=== PATIENT | female | born 1970 | race Caucasian/White ===

== ENCOUNTER 2020-05-28 13:43 | Emergency (ER) | payer BC, MEDICARE ==
[~2020-05-28] VITALS: Ht 154.9 cm; Wt 106.0 kg
[2020-05-28 14:51] VITALS: BP 140/80
[2020-05-28] MEDS ORDERED: NAPROXEN 500 MG TABLET PO STA (15:35)
[2020-05-28] MEDS ORDERED: HYDROcodone/APAP 5/325MG 1 TAB TABLET PO ONE (15:45)
--- NOTE | 2020-05-28 15:58 | RAD ---
LEFT WRIST, 3 VIEWS Indication: Reason: fall this am, painful and swollen wrist area / Spl. Instructions: / History: Findings: There is no acute fracture or dislocation. No bony erosion is identified. The bony articulations are normal. The mineralization is normal. There is no soft tissue swelling or radiopaque foreign body. IMPRESSION: No acute fracture or dislocation. Electronically signed by: Antoine Hanley MD (05/28/2020 3:55 PM) [facility]
--- NOTE | 2020-05-28 16:09 | PHYS DOC ---
Past Medical History Past Medical History: Hypertension, Hypothyroid, Other Additional Past Medical Histor: LUPUS Past Surgical History: Cholecystectomy, Knee Replacement, Tubal ligation Smoking Status: Never Smoker Alcohol Use: None General Adult EDM: Chief Complaint: WRIST PAIN HPI: HPI: Patient is a 49 year old female who presents to the ED today complaining of 8 out of 10 right distal wrist pain that began at 4 in the morning after she fell. Denies any loss of consciousness. Denies hitting her head on the ground. States the pain is worse on range of motion at touching the wrist specifically the ulnar aspect. Denies any scaphoid pain or tenderness. Denies anything relieving the pain. Describes the pain as sharp and intermittent. Review of Systems: Review of Systems: Constitutional: Denies fever or chills. [] Musculoskeletal: Reports right wrist pain Integument: Denies rash. [] Neurologic: Denies headache, focal weakness or sensory changes. [] Psychiatric: Denies depression or anxiety. [] Heart Score: Risk Factors: Risk Factors: DM, Current or recent (<one month) smoker, HTN, HLP, family history of CAD, obesity. Risk Scores: Score 0 - 3: 2.5% MACE over next 6 weeks - Discharge Home Score 4 - 6: 20.3% MACE over next 6 weeks - Admit for Clinical Observation Score 7 - 10: 72.7% MACE over next 6 weeks - Early Invasive Strategies Current Medications: Current Medications Medications (Trade) Dose Ordered Sig/Adan Start Time Stop Time Status Last Admin Dose Admin Acetaminophen/ Hydrocodone Bitart (Lortab 5/325) 1 tab 1X ONCE 05/28/20 15:45 05/28/20 15:46 DC 05/28/20 15:47 1 TAB Naproxen (Naprosyn) 500 mg 1X STAT 05/28/20 15:35 05/28/20 15:37 DC 05/28/20 15:47 500 MG Allergies: Allergies: Allergies Coded Allergies Type Severity Reaction Last Updated Verified No Known Drug Allergies 05/28/20 No Physical Exam: PE: Constitutional: Well developed, well nourished, no acute distress, non-toxic appearance. [] Skin: Warm, dry, no erythema, no rash. [] Back: No tenderness, no CVA tenderness. [] Extremities: Right wrist with no obvious deformity, no scaphoid tenderness, tenderness on the distal ulnar aspect of the wrist. Full range of motion to the right wrist and fingers. +2 right radial pulse. Cap refill less than 2 seconds to right fingers. Adequate radial, medial, ulnar sensation to the right wrist. Neurologic: Alert and oriented X 3, normal motor function, normal sensory function, no focal deficits noted. [] Psychologic: Affect normal, judgement normal, mood normal. [] Current Patient Data: Vital Signs: Vital Signs Date Time Temp Pulse Resp B/P (MAP) Pulse Ox O2 Delivery O2 Flow Rate FiO2 05/28/20 15:47 16 98 Room Air 05/28/20 14:51 98.7 83 140/80 (100) 98.7 EKG: EKG: [] Radiology/Procedures: Radiology/Procedures: []REASON: fall this am, painful and swollen wrist area PROCEDURE: WRIST 3V RIGHT LEFT WRIST, 3 VIEWS Indication: Reason: fall this am, painful and swollen wrist area / Spl. Instructions: / History: Findings: There is no acute fracture or dislocation. No bony erosion is identified. The bony articulations are normal. The mineralization is normal. There is no soft tissue swelling or radiopaque foreign body. IMPRESSION: No acute fracture or dislocation. Electronically signed by: Antoine Hanley MD (05/28/2020 3:55 PM) [facility] DICTATED and SIGNED BY: ANTOINE HANLEY MD DATE: 05/28/20 [id number] 0 Course & Med Decision Making: Course & Med Decision Making Pertinent Labs and Imaging studies reviewed. (See chart for details) This is a 49-year-old female patient presenting to the ED today with right wrist pain status post falling at 4 AM this morning. Right wrist x-rays interpreted by radiologist are negative for any acute findings. Provided Velcro splint to the right wrist by the ED RN. Neurovascular exam is intact. Ice elevation encouraged. Follow-up with orthopedic doctor in 1 week if pain persist Zohreh Disclaimer: Zohreh Disclaimer: This electronic medical record was generated, in whole or in part, using a voice recognition dictation system. Departure Departure Impression: Primary Impression: Fall from standing Qualified Codes: W19.XXXA - Unspecified fall, initial encounter Additional Impression: Right wrist pain Disposition: 01 DC HOME SELF CARE/HOMELESS Condition: STABLE Referrals: MATTIE MONTEIRO MD (PCP) KERI PEDERSEN MD follow up in one week Patient Instructions: Wrist Sprain with [facility] Additional Instructions: You were seen for right wrist pain, your right wrist x-rays are negative for any acute findings. Try to ice and elevate the extremity. Wear the Velcro provided as tolerated and needed. Follow-up with orthopedic doctor in 1 to 2 weeks Scripts Diclofenac Potassium (DICLOFENAC POTASSIUM) 50 Mg Tablet 1 TAB PO BID, #14 TAB 1 Refill Prov: ALPHONSO CHAVEZ APRN 05/28/20 ALPHONSO CHAVEZ APRN May 28, 2020 16:08
[2020-05-28] MEDS ORDERED: DICL50TA2 PO (16:23)
== END 2020-05-28 16:40 | disposition home or self-care (01) ==
LOC: ER 13:43
DX: G89.11 Acute pain due to trauma (principal); M25.531 Pain in right wrist; R20.2 Paresthesia of skin; I10 Essential (primary) hypertension; E03.9 Hypothyroidism, unspecified; Z90.49 Acquired absence of other specified parts of digestive tract; Z98.890 Other specified postprocedural states; Z98.51 Tubal ligation status; W18.39XA Other fall on same level, initial encounter; Y93.89 Activity, other specified; Y92.89 Other specified places as the place of occurrence of the external cause; Y99.8 Other external cause status
CPT/HCPCS: 29125; 73110; 99283

== ENCOUNTER → 2021-01-30 | Outpatient (CLI) | payer BC ==
[~2021-01-30] MED LIST: ALPR0.25 PO; AMLO1CAP54 PO; CELE200C PO; CYAN-25 PO; DICL50TA2 PO; DULO20CA PO; HYDR200T71 PO; IOHEXOL 180 MG/ML 10 ML VIAL. ONE; LEVO175T5 PO; PROP10TA PO; SIMV10TA15 PO; TIZA4TAB2 PO; methylPREDNISolone ACETATE 40 MG/ML VIAL. ONE; methylPREDNISolone ACETATE 80 MG/ML VIAL. ONE
--- NOTE | 2021-01-30 12:32 | PDOC1 ---
INITIAL PAIN CONSULT DATE OF SERVICE: DOS: DATE: 01/30/21 TIME: 12:20 CHIEF COMPLAINT: Chief Complaint: Neck and bilateral upper extremity pain right greater than left HISTORY OF PRESENT ILLNESS: 50-year-old female presents with history of pain neck and shoulders bilateral upper extremities right greater than left for 10 years worse over the past year or 2 patient reports that she did have a anterior cervical discectomy and fusion in the past which helped for about a year following the surgery but the pain returned now over the past 2 to 3 years beginning to get worse with pain in the patient's neck and shoulders as well as the right arm with radiation to the hand and fingers more on the right than left and present bilaterally. Patient describes as constant throbbing tingling with numbness radiating pain aching cramping and burning also complains of pain low back and right lower extremity mostly the posterior gluteus posterior thigh and posterior calf but is secondary to the pain in the upper extremities. Patient has had physical therapy in the past chiropractic treatment is still doing exercises has had epidural injections in [facility] as well as trigger point injections which all were helpful but only temporarily. Patient is taking tizanidine at night which does help her sleep. Patient not had any recent diagnostic studies x-rays or MRIs. Patient rates her disability rating 0-10 10 being the worst is a 10 with social activity occupation 9 with recreational activities and life support activities 8 with sexual behavior 7 with family home responsibilities and self-care activities. PAST MEDICAL HISTORY: PMH: Hypertension, lupus, arthritis PREVIOUS SURGERIES: Past Surgical Hx: Anterior cervical discectomy and fusion, right knee replacement, cholecystectomy, left elbow surgery, tubal ligation CURRENT MEDICATIONS: Current Meds: Active Scripts Medications Dose Route/Sig Max Daily Dose Days Date Category Propranolol Hcl 10 Mg Tablet Unknown Dose PO DAILY 01/30/21 Reported Xanax (Alprazolam) 0.25 Mg Tablet Unknown Dose PO PRN Q6HRS PRN 01/30/21 Reported Vitamin B-12 (Cyanocobalamin (Vitamin B-12)) 1,000 Mcg Tablet 1 Tab PO WEEKLY 30 01/30/21 Reported Celebrex (Celecoxib) 200 Mg Capsule 1 Cap PO DAILY 01/30/21 Reported Cymbalta (Duloxetine Hcl) 20 Mg Capsule. Unknown Dose PO DAILY 01/30/21 Reported Simvastatin 10 Mg Tablet Unknown Dose PO HS 01/30/21 Reported Plaquenil (Hydroxychloroquine Sulfate) 200 Mg Tablet 200 Mg PO BID 01/30/21 Reported Levothyroxine Sodium 175 Mcg Tablet 1 Tab PO DAILY 01/30/21 Reported Tizanidine Hcl 4 Mg Tablet 4 Mg PO QID PRN 01/30/21 Reported Amlodipine-Benazepril 10-40 Mg (Amlodipine Besylate/Benazepril) 1 Each Capsule 1 Cap PO DAILY 01/30/21 Reported ALLERGIES; Allergies: Coded Allergies: Latex, Natural Rubber (Verified Allergy, Intermediate, Rash, 01/30/21) kiwi (Verified Allergy, Intermediate, Rash, 01/30/21) peanut (Verified Allergy, Intermediate, RASH, 01/30/21) strawberry (Verified Allergy, Intermediate, Rash, 01/30/21) FAMILY HISTORY: Family Hx: Colon cancer, heart disease, diabetes SOCIAL HISTORY: Social Hx: Patient is nondrug alcohol does not smoke or use any illegal illicit recreational drugs is lives with her spouse lives locally in [facility] REVIEW OF SYSTEMS: ROS: Positive for those items mentioned in history of present illness, all systems are reviewed, otherwise negative ,and are complete full and well-documented on patient's chart. PHYSICAL EXAM: VS: Blood pressure is 136/86 pulse 69 respirations 18 temperature 97.9 F height is 5 feet 1 inches weight is 241 pounds PE: PHYSICAL EXAMINATION: GENERAL: The patient is awake, alert, oriented, appropriate, very pleasant in demeanor. HEENT: Shows normocephalic, atraumatic. Extraocular movements are intact and symmetrical. Oral cavity: Mucous membranes moist and pink. Dentition is intact. NECK: Shows anterior throat supple without palpable lymphadenopathy noted. CHEST: Shows normal on inspection. Breath sounds are clear bilaterally, distant but no rales rhonchi or wheezes auscultated. HEART: Shows S1, S2 clear. No murmurs auscultated. ABDOMEN: Soft, nontender, nondistended, obese. No palpable organomegaly is noted. No rebound or guarding demonstrated. BACK: Shows spine grossly in the midline. Normal-appearing cervical lordotic curvature. Cervical paraspinous muscles show symmetrical inspection, on palpation some moderate tenderness diffusely in the mid and lower distribution paraspinous muscles more on the right than the left but present bilaterally without trigger points without atrophy hypertrophy. Patient has full rotation of motion of the cervical spine both laterally as well as extension flexion without significant increase in pain. There is slightly increased thoracic kyphosis, some minor flattening of the lumbar lordotic curvature. Lumbar p araspinous muscles show symmetrical on inspection, on palpation shows some moderate tenderness diffusely throughout the upper, middle and lower distribution of the paraspinous muscles without specific trigger points, without radiation of pain. The patient has good rotational motion of the lumbar spine, both laterally as well as extension and flexion without significant difficulty. No tenderness over the spinous processes, sacrum or sacroiliac regions. EXTREMITIES: Lower extremities show deep tendon reflexes 1+ in the patellar and tendo calcaneus tendons. Motor exam is 4 on a scale of 5 with right dorsiflexion, extension, quadriceps and hamstring flexion and 5/5 on the left. Peripheral pulses are 1+ posterior tibial. No peripheral edema is noted bilaterally. Lower extremities are warm and dry to touch, equal in color and appearance. Straight leg raise noted to be positive on the right about 35 degrees, left side is negative. Gaenslen's and Rick's maneuvers are negative as well. The patient is able to stand, stand on her toes without significant difficulty walks with a slight favoring gait does appear to favor the right lowe r extremity slightly but without any assistive devices. Upper extremity show deep tendon reflexes 2+ in the bicep tricep tendons motor exam is 4 to scale 5 with right retread technician strength and 5 out of 5 on the left bicep tricep flexion likewise 4 out of 5 on the right and 5 out of 5 on the left. Shoulder shrug strong and intact without loss of strength on resistance as is abduction of the shoulder 90 degrees without loss of strength on resistance. Peripheral pulses are 2+ radial. SKIN: Shows warm and dry, good turgor. No edema. No sores, rashes or bruising throughout. IMPRESSION: Impression: 50-year-old female with long history pain base of the neck and bilateral upper extremities in a radicular fashion. Low back and right lower extremity pain in a radicular fashion Hypertension Arthritis Lupus history Plan: Options discussed with the patient including conservative medical management physical therapies interventional techniques. Patient elects interventional techniques that she is done well with these in the past and outside facility. We discussed a cervical epidural steroid injections description as well as anatomical models to describe the procedure. Risks were discussed including but not limited to: Bleeding, infection, possibility of epidural hematoma and subsequent neurological compromise, dural puncture, headaches, spinal cord and/or nerve damage, side effects of steroid medication, and poor results regarding pain control. Patient understands and wished to proceed. Patient return to clinic in approximately 2 weeks for follow-up, was counseled as to return appointment activity level and side effects be aware of. Procedure cervical epidural steroid injection at the C6-7 level, using local anesthetic under sterile prep and drape using C-arm fluoroscopic guidance under local anesthesia medications injected ;120 mg Depo-Medrol +5 mL normal saline and 2 mL contrast; condition at discharge is stable patient tolerated procedure well. and had no complications ASIA VICTOR MD Jan 30, 2021 12:32
--- NOTE | 2021-01-30 12:33 | PDOC4 ---
Procedure Note: ICD 10 Code: ICD 10 Code: M 54.12 Procedure Note: Patient was consented for cervical epidural steroid injection with fluoroscopic guidance. Risks were discussed including but not limited to: Bleeding, infection, possibility of epidural hematoma and subsequent neurological compromise, dural puncture, headaches, spinal cord and/or nerve damage, side effects of steroid medication, and poor results regarding pain control. Patient understands and wished to proceed. Procedure cervical epidural steroid injection at the C6-7 level, using local anesthetic under sterile prep and drape using C-arm fluoroscopic guidance under local anesthesia medications injected ;120 mg Depo-Medrol +5 mL normal saline and 2 mL contrast; condition at discharge is stable patient tolerated procedure well. and had no complications ASIA VICTOR MD Jan 30, 2021 12:33
== END | disposition home or self-care (01) ==
LOC: PNCL 08:54
PROVIDERS: ATTEND Anesthesiology
DX: M54.2 Cervicalgia (principal); M79.602 Pain in left arm; M79.601 Pain in right arm; I10 Essential (primary) hypertension; M19.90 Unspecified osteoarthritis, unspecified site; Z90.49 Acquired absence of other specified parts of digestive tract; Z98.51 Tubal ligation status; Z98.890 Other specified postprocedural states; Z79.899 Other long term (current) drug therapy; Z91.040 Latex allergy status; Z88.8 Allergy status to other drugs, medicaments and biological substances; Z82.49 Family history of ischemic heart disease and other diseases of the circulatory system; Z83.3 Family history of diabetes mellitus
CPT/HCPCS: 62321; J1030; J1040; Q9965

== ENCOUNTER → 2021-03-04 | Outpatient (CLI) | payer BC ==
[~2021-03-04] MED LIST changes: -methylPREDNISolone ACETATE 40 MG/ML VIAL. ONE
--- NOTE | 2021-03-04 09:10 | PDOC ---
Progress Note - Pain Clinic Date of Service: DOS: DATE: 03/04/21 TIME: 09:06 Diagnosis: Dx: Cervical radiculopathy with cervical degenerative disc disease Lumbar radiculopathy lumbar degenerative disc disease History or Present Illness: HPI: 50-year-old female returns for follow-up status post cervical epidural steroid injection x1. Patient reports about 90% improvement for the first few weeks af ter the injection the pain returning now over the past week or so in the base the neck and shoulders slight more painful on the left side patient reports some low back pain as well also on the left side and in the left lower extremity but her main complaint is the neck and upper extremities patient rates it as a 9 on scale 10 is worst over this past week 9 on average 3 at its least is a 9 today patient was aching sharp shooting in the left upper extremity tingling and burning in the arm and hand can be constant and severe with activity patient reports initially she was doing much better with distance walking doing household activities work activities using her arms with repetitive motions weightbearing with much greater ease and comfort until the last week or so the pain began to return but is still not back to baseline. Patient reports no new motor or sensory deficits no bowel or bladder incontinence. Physical Exam: VS: Blood pressure is 147/87 pulse 56 respirations 18 temperature is 98.7 F height is 5 feet 1 inches weight is 263 pounds PE: PHYSICAL EXAMINATION: GENERAL: The patient is awake, alert, oriented, appropriate, very pleasant in demeanor HEENT: Shows normocephalic, atraumatic. Extraocular movements are intact and symmetrical. Oral cavity: Mucous membranes moist and pink. Dentition is intact. NECK: Shows anterior throat supple without palpable lymphadenopathy noted. Swallow reflex symmetrical. CHEST: Shows normal on inspection. Breath sounds are clear bilaterally, distant but no rales rhonchi or wheezes auscultated. HEART: Shows S1, S2 clear. No murmurs auscultated. ABDOMEN: Soft, nontender, nondistended. No palpable organomegaly is noted. BACK: Shows spine grossly in the midline. Normal-appearing cervical lordotic curvature. Cervical paraspinous muscles show symmetrical inspection, on palpation some moderate tenderness diffusely throughout the upper middle lower decrease the paraspinous muscles bilaterally but without specific trigger points without radiation. Patient shows good rotation of motion both laterally as well as extension flexion without significant increase in pain. There is slightly increased thoracic kyphosis, some minor flattening of the lumbar lordotic curvature. Lumbar paraspinous muscles show symmetrical on inspection, on palpation shows some moderate tenderness diffusely throughout the upper, middle and lower distribution of the paraspinous muscles, but without specific trigger points, without radiation of pain. The patient has good rotational motion of the lumbar spine, both laterally as well as extension and flexion without significant difficulty. No tenderness over the spinous processes, sacrum or sacroiliac regions. EXTREMITIES: Lower extremities show deep tendon reflexes 1+ in the patellar and tendo calcaneus tendons. Motor exam is 4 on a scale of 5 with right dorsiflexion, extension, quadriceps and hamstring flexion and 5/5 on the left. Peripheral pulses are 1 posterior tibial. No peripheral edema is noted bilaterally. Lower extremities are warm and dry to touch, equal in color and appearance. Upper extremity show deep tendon reflexes 2+ in the bicep and triceps tendons, motor exam and strong with 4-5 on the right and 5 out of 5 on the left counter pocket trimmer strength bicep and tricep flexion peripheral pulses are 2+ radial. SKIN: Shows warm and dry, good turgor. No edema. No sores, rashes or bruising throughout. Procedure: Procedure: Options were discussed with the patient. Patient's old chart was reviewed as her current medication regimen updated current review of systems updated today as well. We will proceed with a second cervical epidural steroid injection today with fluoroscopic guidance. Risks were discussed including but not limited to: Bleeding, infection, possibility of epidural hematoma and subsequent neurological compromise, dural puncture, headaches, spinal cord and/or nerve damage, side effects of steroid medication, and poor results regarding pain control. Patient understands and wished to proceed. Patient will return to clinic in approximately 4 weeks for follow-up, was counseled as to return appointment activity level and side effects to be aware of. Medication Injected: Med Injected: Procedure cervical epidural steroid injection at the C6-7 level, using local anesthetic under sterile prep and drape using C-arm fluoroscopic guidance under local anesthesia medications injected ;120 mg Depo-Medrol +5 mL normal saline and 2 mL contrast; condition at discharge is stable patient tolerated procedure well. and had no complications Condition at Discharge: Condition at Discharge: Condition at discharge is stable, patient tolerated the procedure well and had no complications. ASIA VICTOR MD Mar 04, 2021 09:10
--- NOTE | 2021-03-04 09:11 | PDOC4 ---
Procedure Note: ICD 10 Code: ICD 10 Code: M 54.12 M50.30 Procedure Note: Patient was consented for cervical epidural steroid injection. Risks were discussed including but not limited to: Bleeding, infection, possibility of epidural hematoma and subsequent neurological compromise, dural puncture, headaches, spinal cord and/or nerve damage, side effects of steroid medication, and poor results regarding pain control. Patient understands and wished to proceed. Procedure cervical epidural steroid injection at the C6-7 level, using local anesthetic under sterile prep and drape using C-arm fluoroscopic guidance under local anesthesia medications injected ;120 mg Depo-Medrol +5 mL normal saline and 2 mL contrast; condition at discharge is stable patient tolerated procedure well. and had no complications ASIA VICTOR MD Mar 04, 2021 09:11
== END | disposition home or self-care (01) ==
LOC: PNCL 08:18
PROVIDERS: ATTEND Anesthesiology
DX: M50.10 Cervical disc disorder with radiculopathy, unspecified cervical region (principal); M51.16 Intervertebral disc disorders with radiculopathy, lumbar region; Z79.899 Other long term (current) drug therapy; Z91.040 Latex allergy status; Z88.8 Allergy status to other drugs, medicaments and biological substances
CPT/HCPCS: 62321; J1040; Q9965

== ENCOUNTER → 2021-06-20 | Outpatient (CLI) | payer BC ==
[~2021-06-20] MED LIST changes: +AMLO-54 PO; -AMLO1CAP54 PO; +TIZA-75 PO; -TIZA4TAB2 PO; +methylPREDNISolone ACETATE 40 MG/ML VIAL. ONE
--- NOTE | 2021-06-20 12:25 | PDOC4 ---
Procedure Note: ICD 10 Code: ICD 10 Code: M54.12 M50.30 Procedure Note: Patient was consented for cervical epidural steroid injection with fluoroscopic guidance. Risks were discussed including but not limited to: Bleeding, infection, possibility of epidural hematoma and subsequent neurological compromise, dural puncture, headaches, spinal cord and/or nerve damage, side effects of steroid medication, and poor results regarding pain control. Patient understands and wished to proceed. Procedure cervical epidural steroid injection at the C6-7 level, using local anesthetic under sterile prep and drape using C-arm fluoroscopic guidance under local anesthesia medications injected ;120 mg Depo-Medrol +5 mL normal saline and 2 mL contrast; condition at discharge is stable patient tolerated procedure well. and had no complications ASIA VICTOR MD Jun 20, 2021 12:25
--- NOTE | 2021-06-20 12:25 | PDOC ---
Progress Note - Pain Clinic Date of Service: DOS: DATE: 06/20/21 TIME: : Diagnosis: Dx: Cervical radiculopathy with cervical degenerative disc disease Lumbar radiculopathy with lumbar degenerative disc disease History or Present Illness: HPI: 50-year-old female returns last seen January 2021 patient did very well after cervical epidural steroid injection with 100% improvement for multiple months patient reports she just finished moving to a new home and has had increased activity upper extremities exacerbating the pain the base the neck and shoulders patient reports is radiating to the left worse than the right but present bilaterally and also some significant pain the mid upper and low back as well which is new patient reports 10 on scale 10 is worse over the past week 10 on average 0 its least is a 10 today patient scribes a sharp and shooting in the upper extremity shoulders and arms tingling and burning in the low back constant in the back constant in the neck and unbearable at times. Patient reports awakening from sleep about once every 6 hours initially she do much better distance walking doing household activities work activities try with greater ease and comfort sleeping better now it is returning after increased activity from a move last month. Patient reports no bowel or bladder incontinence. Physical Exam: VS: Blood pressure is 174/105 pulse 81 respirations 18 temperature 97.8 F height is 5 foot 1 his weight is 266 pounds. PE: PHYSICAL EXAMINATION: GENERAL: The patient is awake, alert, oriented, appropriate, very pleasant in demeanor HEENT: Shows normocephalic, atraumatic. Extraocular movements are intact and symmetrical. Oral cavity: Mucous membranes moist and pink. Dentition is intact. NECK: Shows anterior throat supple without palpable lymphadenopathy noted. Swallow reflex symmetrical. CHEST: Shows normal on inspection. Breath sounds are clear bilaterally, distant no rales or rhonchi. HEART: Shows S1, S2 clear. No murmurs auscultated. ABDOMEN: Soft, nontender, nondistended. No palpable organomegaly is noted. BACK: Shows spine grossly in the midline. Normal-appearing cervical lordotic curvature. Cervical paraspinous muscles show symmetrical inspection, palpation some moderate tenderness diffusely bilaterally in the inferior aspect the cervical paraspinous musculature as well as into the superior medial trapezius slightly more on the left than the right but without radiation without trigger points. Patient shows full rotation motion cervical spine but guarded especially to the left with full extension full forward flexion without significant difficulty. There is increased thoracic kyphosis, some minor flattening of the lumbar lordotic curvature. Lumbar paraspinous muscles show symmetrical on inspection, on palpation shows some moderate tenderness diffusely throughout the upper, middle and lower distribution of the paraspinous muscles without specific trigger points, without radiation of pain. The patient has good rotational motion of the lumbar spine, both laterally as well as extension and flexion without significant difficulty. EXTREMITIES: Upper extremities show deep tendon reflexes 2+ in the biceps and triceps tendons. Motor exam is 5 on a scale of 5 with right strength, biceps and triceps flexion and 4/5 on the left. Peripheral pulses are 2+ radial. No peripheral edema is noted bilaterally. Upper extremities are warm and dry to touch, equal in color and appearance. Shoulder shrug strong intact without loss of strength on resistance as is abduction of the shoulder to 90 degrees bilaterally. SKIN: Shows warm and dry, good turgor. No edema. No sores, rashes or bruising throughout. Procedure: Procedure: Options discussed with patient. Patient chart reviews her current medication regimen updated current view of systems updated today as well. We will proceed with a cervical epidural steroid injection today with fluoroscopic guidance. Risks were discussed including but not limited to: Bleeding, infection, poss ibility of epidural hematoma and subsequent neurological compromise, dural puncture, headaches, spinal cord and/or nerve damage, side effects of steroid medication, and poor results regarding pain control. Patient understands and wished to proceed. Patient will return to clinic in approximate 2 weeks for follow-up, was counseled as return appointment, activity level, and side effect to be aware of. Medication Injected: Med Injected: Procedure cervical epidural steroid injection at the C6-7 level, using local anesthetic under sterile prep and drape using C-arm fluoroscopic guidance under local anesthesia medications injected ;120 mg Depo-Medrol +5 mL normal saline and 2 mL contrast; condition at discharge is stable patient tolerated procedure well. and had no complications Condition at Discharge: Condition at Discharge: Condition at discharge stable, patient tolerated the procedure well and had no complications. ASIA VICTOR MD Jun 20, 2021 12:25
== END | disposition home or self-care (01) ==
LOC: PNCL 10:29
PROVIDERS: ATTEND Anesthesiology
DX: M50.10 Cervical disc disorder with radiculopathy, unspecified cervical region (principal); M51.16 Intervertebral disc disorders with radiculopathy, lumbar region; Z79.899 Other long term (current) drug therapy; Z91.040 Latex allergy status; Z88.8 Allergy status to other drugs, medicaments and biological substances
CPT/HCPCS: 62321; J1030; J1040; Q9965

== ENCOUNTER → 2021-07-24 | Outpatient (CLI) | payer BC ==
[~2021-07-24] MED LIST changes: -IOHEXOL 180 MG/ML 10 ML VIAL. ONE; -methylPREDNISolone ACETATE 40 MG/ML VIAL. ONE; -methylPREDNISolone ACETATE 80 MG/ML VIAL. ONE
--- NOTE | 2021-07-24 11:38 | PDOC ---
Progress Note - Pain Clinic Date of Service: DOS: DATE: 07/24/21 TIME: 11:33 Diagnosis: Dx: Cervical radiculopathy with cervical degenerative disc disease Lumbar radiculopathy with lumbar degenerative disc disease History or Present Illness: HPI: 50-year-old female returns for follow-up status post cervical epidural steroid injection last seen June 20, 2021. Patient very well with about 90% i mprovement for several weeks following the injection patient reports pain is returning now and is in the bilateral upper extremities but has a new finding of weakness in the left arm which has been dropping items more significantly than prior even with initial treatment patient reports she has not had any injury or accident recently any new changes that she is aware of but has significant weakness and has been noticed that she is dropping things with her left hand only patient reports the pain is a 9 on scale 10 is worst 8 on average 6 its least is a 7 today patient will get shooting tingling burning the base neck and shoulders right upper extremity and left but again significantly more weakness on the left side of the upper extremities. Patient reports it can be constant severe but generally is better with sitting or resting supporting her head her neck and her shoulders does not generally awaken her from sleep at night most nights. Patient reports also some pain in the low back and left lower extremity which is doing fairly well. Patient reports no bowel or bladder incontinence. Physical Exam: VS: Blood pressure is 133/75 pulse 57 respirations 18 temperature is 98.2 F height is 5 foot 1 inch weight is 268 pounds PE: PHYSICAL EXAMINATION: GENERAL: The patient is awake, alert, oriented, appropriate, very pleasant in demeanor HEENT: Shows normocephalic, atraumatic. Extraocular movements are intact and symmetrical. Oral cavity: Mucous membranes moist and pink. Dentition is intact. NECK: Shows anterior throat supple without palpable lymphadenopathy noted. Swallow reflex symmetrical. CHEST: Shows normal on inspection. Breath sounds are clear bilaterally, distant but no rales or rhonchi. HEART: Shows S1, S2 clear. No murmurs auscultated. ABDOMEN: Soft, nontender, nondistended. No palpable organomegaly is noted. BACK: Shows spine grossly in the midline. Normal-appearing cervical lordotic curvature. Cervical paraspinous muscles show symmetrical on inspection, on palpation some moderate tenderness diffusely in the inferior aspect of the cervical paraspinous musculature bilaterally but without significant atrophy hypertrophy or asymmetry and no trigger points. Patient shows full rotation motion cervical spine both laterally as well as full extension full forward flexion without significant difficulty. There is slightly increased thoracic kyphosis, some flattening of the lumbar lordotic curvature. Lumbar paraspinous muscles show symmetrical on inspection, on palpation shows some moderate tenderness diffusely throughout the upper, middle and lower distribution of the paraspinous muscles, but without specific trigger points, without radiation of pain. The patient has good rotational motion of the lumbar spine, both laterally as well as extension and flexion without significant difficulty. No tenderness over the spinous processes, sacrum or sacroiliac regions. EXTREMITIES: Lower extremities show deep tendon reflexes in the patellar and tendo calcaneus tendons. Motor exam is 5 on a scale of 5 with right dorsiflexion, extension, quadriceps and hamstring flexion and 5/5 on the left. Peripheral pulses are 1+ posterior tibial. No peripheral edema is noted bilaterally. Lower extremities are warm and dry to touch, equal in color and appearance. Upper extremity show deep tendon reflexes 2+ in the bicep tricep tendons, motor exam is 4 on a scale of 5 left education specialist strength bicep and tricep flexion right side is 5 out of 5. Peripheral pulses are 2+ radial. Shoulder shrug is strong and intact without loss of strength on resistance bilaterally. SKIN: Shows warm and dry, good turgor. No edema. No sores, rashes or bruising throughout. Procedure: Procedure: Options discussed with patient. Patient's old chart was reviewed as her current medication regimen updated current review of systems updated today as well. We will proceed with a cervical epidural steroid injection today with fluoroscopic guidance. Risks were discussed including but not limited to: Bleeding, infection, possibility of epidural hematoma and subsequent neurological compromise, dural puncture, headaches, spinal cord and/or nerve damage, side effects of steroid medication, and poor results regarding pain control. Patient understands and wished to proceed. Patient will return to the clinic in approximately 2 weeks for follow-up, was counseled as to return appointment, active level, and side effect to be aware of. Medication Injected: Med Injected: Procedure cervical epidural steroid injection at the C6-7 level, using local anesthetic under sterile prep and drape using C-arm fluoroscopic guidance under local anesthesia medications injected ;120 mg Depo-Medrol +5 mL normal saline and 2 mL contrast; condition at discharge is stable patient tolerated procedure well. and had no complications Condition at Discharge: Condition at Discharge: Condition at discharge stable, paced tolerated the procedure well and had no complications. ASIA VICTOR MD Jul 24, 2021 11:38
--- NOTE | 2021-07-24 11:38 | PDOC4 ---
Procedure Note: ICD 10 Code: ICD 10 Code: M54.12 M50.30 Procedure Note: Patient was consented for cervical epidural steroid injection with fluoroscopic guidance. Risks were discussed including but not limited to: Bleeding, infection, possibility of epidural hematoma and subsequent neurological compromise, dural puncture, headaches, spinal cord and/or nerve damage, side effects of steroid medication, and poor results regarding pain control. Patient understands and wished to proceed. Procedure cervical epidural steroid injection at the C6-7 level, using local anesthetic under sterile prep and drape using C-arm fluoroscopic guidance under local anesthesia medications injected ;120 mg Depo-Medrol +5 mL normal saline and 2 mL contrast; condition at discharge is stable patient tolerated procedure well. and had no complications ASIA VICTOR MD Jul 24, 2021 11:38
== END | disposition home or self-care (01) ==
LOC: PNCL 10:26
PROVIDERS: ATTEND Anesthesiology
DX: M50.10 Cervical disc disorder with radiculopathy, unspecified cervical region (principal); M51.16 Intervertebral disc disorders with radiculopathy, lumbar region; M48.02 Spinal stenosis, cervical region; Z79.899 Other long term (current) drug therapy; Z91.040 Latex allergy status; Z88.8 Allergy status to other drugs, medicaments and biological substances
CPT/HCPCS: 62321